=== PATIENT | male | born 1970 | race Native Hawaiian/Other Pacific Islander ===

== ENCOUNTER 2017-08-12 20:59 | Emergency (ER) | payer OTHER ==
[~2017-08-12] VITALS: Ht 175.3 cm; Wt 108.9 kg
[~2017-08-12 20:59] MED LIST: ATEN25TA21 PO; CIPRO500 MG OR; CIPRO500 MG PO; FLUT0.05; LORA10TA3 PO; NEXIUM40 M1 OR
[2017-08-12 21:17] VITALS: TEMP 98.1
[2017-08-12 22:08] LABS: PLATELET COUNT 273 K/uL (142-355)
[2017-08-12 22:39] VITALS: BP 137/84
== END 2017-08-12 22:41 | disposition home or self-care (01) ==
LOC: ED 20:59
DX: J32.9 Chronic sinusitis, unspecified (principal)
CPT/HCPCS: 85027; 99283

== ENCOUNTER 2020-01-18 11:30 | Day surgery (SDC) | payer OTHER ==
[2020-01-16 09:19] LABS: PLATELET COUNT 226 K/uL (142-355)
[2020-01-16 09:27] LABS: POTASSIUM 3.7 mmol/L (3.6-5.2)
== END 2020-01-18 14:25 | disposition home or self-care (01) ==
LOC: OR 11:30
PROVIDERS: Internal Medicine Gastroenterology
PROC: 0DB68ZZ Excision of Stomach, Via Natural or Artificial Opening Endoscopic (ICD-10-PCS; principal; 2020-01-18)
PROC: 0DB88ZZ Excision of Small Intestine, Via Natural or Artificial Opening Endoscopic (ICD-10-PCS; 2020-01-18)
DX: K25.9 Gastric ulcer, unspecified as acute or chronic, without hemorrhage or perforation (principal); K21.0 Gastro-esophageal reflux disease with esophagitis; K29.50 Unspecified chronic gastritis without bleeding; R10.13 Epigastric pain; R11.0 Nausea
CPT/HCPCS: 80053; 85027; J2001; J2704; J7120